=== PATIENT | male | born 1980 | race Caucasian/White ===

== ENCOUNTER 2019-08-06 14:42 | Inpatient (IN) | payer BC, OTHER ==
[2019-08-06 17:46] LABS: ABS Eosinophils 0.1 10^3/ul (0-0.6); ABS Lymphocytes 1.1 10^3/ul (1.0-4.8); ABS Monocytes 1.3 10^3/ul (0-0.8); Eosinophil % 0.7 %; Hematocrit 47 % (42-52); Hemoglobin 16.3 g/dL (14.0-18.0); Lymphocyte % 8.1 %; Mean Corpuscular HGB Conc 35 g/dL (31-36); Mean Corpuscular Hemoglobin 34 pg (27-31); Mean Corpuscular Volume 96 fL (80-94); Mean Platelet Volume 8.4 fL (7.4-10.4); Nucleated Red Blood Cells % 0.1; Platelet Count 181 10^3/uL (150-450); Red Blood Count 4.85 10^6 /uL (4.18-5.48); Red Cell Distribution Width 13 % (10-15); White Blood Count 13.5 10^3/uL (3.5-10.8)
[2019-08-06 18:00] LABS: Albumin 4.5 g/dL (3.2-5.2); Albumin/Globulin Ratio 1.3 (1-3); BUN/Creatinine Ratio 11.3 (8-20); C Reactive Protein 102.47 mg/L (<8.01); Calcium 9.5 mg/dL (8.6-10.3); EGFR African American 150.2 (>60); EGFR Non-African American 124.2 (>60); Globulin 3.4 g/dL (2-4); Total Bilirubin 0.7 mg/dL (0.2-1.0); Total Protein 7.9 g/dL (6.4-8.9)
[2019-08-06] MEDS ORDERED: NS 0.9% 1000 ML** 3,000 ML IV ONE (20:40)
[2019-08-06] MEDS ORDERED: Ondansetron INJ* 2 MG/ML VIAL IV ONE (20:41)
[2019-08-06] MEDS ORDERED: Morphine 10 MG/ML VIAL (1 ml) IV ONE (20:41)
--- NOTE | 2019-08-06 20:50 | ED ---
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 He notes that the abd pain is diffuse and radiates towards his back. He has not been able to sleep due to the abd pain and cannot eat due to nausea. He has also experienced decreased bowel movements and urination. The pt notes that he has experience similar symptoms before but only for 2 hours at a time. He rates his current pain severity due to the abd pain a 9/10. He also reports diaphoresis but denies any vomiting, fever, or chills. He is a light smoker and drinker. - History of Current Complaint Chief Complaint: EDAbdPain Stated Complaint: ABD PAIN Time Seen by Provider: 08/06/19 20:35 Hx Obtained From: Patient Onset/Duration: Lasting Days, Still Present Timing: Constant Severity Initially: Severe Severity Currently: Severe Pain Intensity: 9 Pain Scale Used: 0-10 Numeric Location: Diffuse Radiates: Yes Radiates to: Back Aggravating Factor(s): Nothing Alleviating Factor(s): Nothing Associated Signs And Symptoms: Positive: Negative - chills, Diaphoresis, Back Pain, Constipation, Urinary Symptoms - decreased urination, Decreased Appetite, Nausea, Other - pos - abd pain. Negative: Fever, Vomiting - Allergies/Home Medications Allergies/Adverse Reactions: Allergies Allergy/AdvReac Type Severity Reaction Status Date / Time No Known Allergies Allergy Verified 08/06/19 14:49 Home Medications: Home Medications NK [No Home Medications Reported] 08/06/19 [History Confirmed 08/06/19] PMH/Surg Hx/FS Hx/Imm Hx Endocrine/Hematology History: Denies: Hx Diabetes, Hx Thyroid Disease Cardiovascular History: Denies: Hx Hypertension Respiratory History: Denies: Hx Asthma, Hx Chronic Obstructive Pulmonary Disease (COPD) GI History: Denies: Hx Ulcer - Cancer History Cancer Type, Location and Year: testicular cancer dx 3 yrs ago treated at [facility] per pt Hx Chemotherapy: Yes - 2 yrs ago - Surgical History Surgery Procedure, Year, and Place: right orchiectomy Infectious Disease History: No Infectious Disease History: Denies: Hx Hepatitis, Hx Human Immunodeficiency Virus (HIV), History Other Infectious Disease, Traveled Outside the [place] in Last 30 Days - Family History Family History: Denies any known significant fam hx - Social History Alcohol Use: Occasionally Substance Use Type: Reports: None Smoking Status (MU): Heavy Every Day Tobacco Smoker Type: Cigarettes Amount Used/How Often: almost 1 ppd Length of Time of Smoking/Using Tobacco: 10 years Have You Smoked in the Last Year: Yes Review of Systems Positive: Skin Diaphoresis. Negative: Fever, Chills Positive: Abdominal Pain, Nausea, Other - pos - constipation. Negative: Vomiting Genitourinary: Other - pos - decreased urination Musculoskeletal: Other - pos - back pain All Other Systems Reviewed And Are Negative: Yes Physical Exam Triage Information Reviewed: Yes Vital Signs On Initial Exam: Initial Vitals Temp Pulse Resp BP Pulse Ox 98.8 F 87 16 161/101 97 08/06/19 14:47 08/06/19 14:47 08/06/19 14:47 08/06/19 14:47 08/06/19 14:47 Vital Signs Reviewed: Yes Procedures - Sedation Patient Received Moderate/Deep Sedation with Procedure: No Diagnostics - Vital Signs Vital Signs Temp Pulse Resp BP Pulse Ox 08/06/19 19:05 99.4 F 91 20 182/105 99 08/06/19 17:05 98.8 F 86 16 170/102 100 08/06/19 14:47 98.8 F 87 16 161/101 97 - Laboratory Lab Results: Lab Results 08/06/19 08/06/19 08/06/19 Range/Units 17:29 17:29 17:29 WBC 13.5 H (3.5-10.8) 10^3/uL RBC 4.85 (4.18-5.48) 10^6 /uL Hgb 16.3 (14.0-18.0) g/dL Hct 47 (42-52) % MCV 96 H (80-94) fL MCH 34 H (27-31) pg MCHC 35 (31-36) g/dL RDW 13 (10-15) % Plt Count 181 (150-450) 10^3/uL MPV 8.4 (7.4-10.4) fL Neut % (Auto) 81.5 % Lymph % (Auto) 8.1 % [place] % (Auto) 9.5 % Eos % (Auto) 0.7 % Baso % (Auto) 0.2 % Absolute Neuts (auto) 11.0 H (1.5-7.7) 10^3/ul Absolute Lymphs (auto) 1.1 (1.0-4.8) 10^3/ul Absolute Monos (auto) 1.3 H (0-0.8) 10^3/ul Absolute Eos (auto) 0.1 (0-0.6) 10^3/ul Absolute Basos (auto) 0.0 (0-0.2) 10^3/ul Absolute Nucleated RBC 0.0 10^3/ul Nucleated RBC % 0.1 Sodium 133 L (135-145) mmol/L Potassium 4.0 (3.5-5.0) mmol/L Chloride 97 L (101-111) mmol/L Carbon Dioxide 27 (22-32) mmol/L Anion Gap 9 (2-11) mmol/L BUN 8 (6-24) mg/dL Creatinine 0.71 (0.67-1.17) mg/dL Est GFR ( Amer) 150.2 (>60) Est GFR (Non-Af Amer) 124.2 (>60) BUN/Creatinine Ratio 11.3 (8-20) Glucose 95 (70-100) mg/dL Lactic Acid 0.9 (0.5-2.0) mmol/L Calcium 9.5 (8.6-10.3) mg/dL Total Bilirubin 0.70 (0.2-1.0) mg/dL AST 18 (13-39) U/L ALT 25 (7-52) U/L Alkaline Phosphatase 86 (34-104) U/L C-Reactive Protein 102.47 H (<8.01) mg/L Total Protein 7.9 (6.4-8.9) g/dL Albumin 4.5 (3.2-5.2) g/dL Globulin 3.4 (2-4) g/dL Albumin/Globulin Ratio 1.3 (1-3) Amylase 792 H (29-103) U/L Lipase 2940 H (11.0-82.0) U/L Result Diagrams: 08/06/19 17:29 08/06/19 17:29 Lab Statement: Any lab studies that have been ordered have been reviewed, and results considered in the medical decision making process. - Ultrasound Gallbladder US Ultrasound Interpretation Completed By: Radiologist Summary of Ultrasound Findings: IMPRESSION: Unremarkable sonography of the gallbladder and CBD. No gallstones nor sludge are seen. ED Physician has reviewed this report. 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 He notes that the abd pain is diffuse and radiates towards his back. He has not been able to sleep due to the abd pain and cannot eat due to nausea. He has also experienced decreased bowel movements and urination. Lab results normal except for WBC 13.5, MCV 96, MCH 34, Absolute Neuts 11, Absolute Monos 1.3, Sodium 133, Chloride 97, CRP 102.47, Amylase 792, Lipase 2940. Gallbladder US reveals: unremarkable sonography of the gallbladder and CBD. No gallstones nor sludge are seen. Final dx is pancreatitis. Dr. Puente will admit the pt to [facility]. Pt is agreeable with this plan. - Diagnoses Provider Diagnoses: Pancreatitis - Provider Notifications Discussed Care Of Patient With: Ethel Puente - Dr. Puente recommends pt admission. Dr. Acuna was consulted regarding the pt's case. Time Discussed With Above Provider: 20:41 Instructed by Provider To: Admit As Inpatient Discharge ED - Sign-Out/Discharge Documenting (check all that apply): Patient Departure - admit - Discharge Plan Condition: Stable Disposition: ADMITTED TO [facility] - Billing Disposition and Condition Condition: STABLE Disposition: Admitted to [facility] - Attestation Statements Document Initiated by Manish: Yes Documenting Scribe: Shon Ambrose Provider For Whom Manish is Documenting (Include Credential): John Stevens MD Scribe Attestation: Shon Klein, scribed for John Stevens MD on 08/07/19 at 0509. Scribe Documentation Reviewed: Yes Provider Attestation: The documentation as recorded by the Shon strickland accurately reflects the service I personally performed and the decisions made by , John Stevens MD Status of Scrcherri Document: Viewed
[2019-08-06] MEDS ORDERED: Iohexol 300* (CONTRAST) 10 ML SDV IV ONE (21:56)
[2019-08-06 23:12] LABS: Urine Appearance Clear; Urine Bilirubin Negative (Negative); Urine Blood Negative (Negative); Urine Color Straw; Urine Glucose Negative (Negative); Urine Ketones Trace (Negative); Urine Nitrite Negative (Negative); Urine Protein Negative (Negative); Urine Specific Gravity 1.002 (1.010-1.030); Urine Urobilinogen Negative (Negative)
[2019-08-06] MEDS ORDERED: Ondansetron INJ* 2 MG/ML VIAL IV PRN (23:58)
[2019-08-07] MEDS: Enoxaparin(*) 40 MG/0.4 ML SYR SUBCUT SCH ×2 (02:40→23:41)
[2019-08-07] MEDS: NS 0.9% 1000 ML** 1,000 ML IV SCH (02:41)
[2019-08-07] MEDS: Morphine INJ* 2 MG/ML 1 ML SYRINGE (TWO MG - NEW SYRINGE VERSION) IV PRN ×2 (02:45→22:10)
[2019-08-07 05:54] LABS: ABS Eosinophils 0.1 10^3/ul (0-0.6); ABS Lymphocytes 1.2 10^3/ul (1.0-4.8); ABS Monocytes 1.1 10^3/ul (0-0.8); ABS Neutrophils 7.5 10^3/ul (1.5-7.7); Eosinophil % 1.4 %; Hematocrit 43 % (42-52); Hemoglobin 14.8 g/dL (14.0-18.0); Lymphocyte % 12.4 %; Mean Corpuscular HGB Conc 35 g/dL (31-36); Mean Corpuscular Hemoglobin 33 pg (27-31); Mean Corpuscular Volume 96 fL (80-94); Mean Platelet Volume 8.4 fL (7.4-10.4); Nucleated Red Blood Cells % 0.1; Platelet Count 155 10^3/uL (150-450); Red Blood Count 4.46 10^6 /uL (4.18-5.48); Red Cell Distribution Width 13 % (10-15); White Blood Count 10.1 10^3/uL (3.5-10.8)
[2019-08-07 05:58] LABS: INR 1.14 (0.82-1.09)
[2019-08-07 06:11] LABS: BUN/Creatinine Ratio 8.6 (8-20); Calcium 8.4 mg/dL (8.6-10.3); EGFR African American 152.7 (>60); EGFR Non-African American 126.2 (>60); HDL Cholesterol 49.7 mg/dL; Potassium 3.4 mmol/L (3.5-5.0)
[2019-08-07 06:24] LABS: TSH (Thyroid Stimulating Horm) 0.58 mcIU/mL (0.34-5.60)
--- NOTE | 2019-08-07 06:50 | ADMNOTE ---
Subjective Interval History: this is my H/P 38 yo male with no medical hx presenting with epigastric pain radiating to his back. Pain started 2 days ago and since has not been able to eat. He has been nauseous. It had gotten so unbearable that he came to the ED today. Lipase level markedly elevated. His CT showed pancreatitis, but official read not yet available. US did not show evidence of gallstones or sludge. Pt denies drinking alcohol. He does not take any medications OTC. He does not have a PCP. He never had anything like it before and does not have any hx of it in his family. His electrolytes levels are benign. Family History: Unchanged from Admission Social History: Unchanged from Admission Past Medical History: Unchanged from Admission Review of Systems - Measurements Intake and Output: Intake and Output Last 24 Hours 08/04/19 08/05/19 08/06/19 08/07/19 06:59 06:59 06:59 06:59 Intake Total 3000 Balance 3000 Weight 189 lb 9.6 oz Intake: IV Fluids 3000 - Review of Systems Constitutional Symptoms: Negative: Weight Gain, Weight Loss, Weakness, Fatigue, Fever, Night Sweats, Unexplained Falls, Other Dermatology: Negative: Normal, Rash, Skin Lesions, Cancer, Skin Lumps, Other HEENT: Negative: Normal, Change in Hearing, Vertigo, Dental Problems, Tinnitus, Sinus Problem, Other Eyes: Negative: Normal, Change in Vision, Double Vision, Eye Pain, Glaucoma, Cataract, Contacts or Glasses, Other Thyroid: Negative: Normal, Goiter, Thyroid Nodule, Cold Intolerance, Heat Intolerance , Sweatiness, Tremor, Frequent Defecation, Constipation, Palpitations, Primary Hypothyroidism, Primary Hyperthyroidism, Weight Loss, Weight Gain, Change in Skin/Hair, Change in Menstruation, Radiation Exposure, Other Pulmonary: Negative: Normal, Cough, Sputum, Hemoptysis, Wheezing, Respiratory Distress, Shortness of Breath, COPD, Asthma, Exercise Intolerance, Home Oxygen, Other Cardiology: Negative: Normal, Chest Pain, Shortness of Breath, Palpitations, Swelling of Ankles, Peripheral Vascular Dis, Edema, Faintness, Syncope, Claudication, Proximal NocturnalDyspnea, Orthopnoea, Other Gastroenterology: Positive: Abdominal Pain, Nausea Negative: Normal, Vomiting, Anorexia, Indigestion, Difficulty Swallowing, Heartburn, Constipation, Diarrhea, Blood in Stools, Change in Bowel Habits, Haematemesis, Melena, Other Musculoskeletal: Negative: Joint Pain, Joint Stiffness, Arthritis, Osteoporosis, Low Back Pain , Sciatica, Joint Deformities, Kyphoscoliosis, Other Endocrinology: Negative: Normal, Thyroid Problems, Adrenal Problems, Gonadal Problems, Family Hx Endocrine Disorders, Obesity, Diabetes Mellitus, Hyperglycemia, Hx Hypoglycemia, Diabetic Foot Ulcers, Calluses, Hirsutism, Menstrual Abnormalities , Polydipsia, Polyuria, Gonadal Problems, Gynecomastia, Pituitary disease, Other Neurology: Negative: Normal, Headache, Migraines, Change in Vision, Diplopia, Dizziness , Change in Balancing, Change in Coordination, Change in Memory, Change in Speech, Change in Sphincter Function, Change in Walking, Numbness\Paresthesiae, Unexplained Weakness, Hx of Stroke\TIA, Hx of Seizures, Other Psychiatry: Negative: Normal, Depression, Anxiety, Depressed Mood, Anhedonia, Sexual Dysfunction, Weight Change, Guilt Feelings, Tearfulness, Unusual Fatigue, Unusual Anxiety, Suicidal Ideation, Hypomania, Eating Disorders, Other Allergic/Immunologic: Negative: Hx Anaphylaxis, Hx Angioedema, Hx Environmental, Hx Seasonal, Asthma, Hx HIV, Immunocompromise, Swollen Glands LymphNodes, Other Objective Active Medications: Enoxaparin Sodium (Lovenox(*)) 40 mg SUBCUT Q24H [facility] Last Admin: 08/07/19 02:40 Dose: 40 mg Sodium Chloride (Ns 0.9% 1000 Ml) 1,000 mls @ 125 mls/hr IV PER RATE [facility] Last Admin: 08/07/19 02:41 Dose: 125 mls/hr Influenza Virus Vaccine (Fluarix Quad [id number] Syr) 0.5 ml IM .ONCE ONE Stop: 08/07/19 09:01 Morphine Sulfate (Morphine Inj (Syringe))*) 2 mg IV Q4H PRN PRN Reason: PAIN - MILD Last Admin: 08/07/19 02:45 Dose: 2 mg Ondansetron HCl (Zofran Inj*) 4 mg IV Q4H PRN PRN Reason: NAUSEA/VOMITING Vital Signs - 8 hr 08/06/19 08/07/19 08/07/19 22:55 01:50 02:17 Temperature 100.4 F 98.9 F 98.3 F Pulse Rate 74 80 78 Respiratory 18 16 16 Rate Blood Pressure 157/99 160/90 160/90 (mmHg) O2 Sat by Pulse 96 98 98 Oximetry 08/07/19 08/07/19 08/07/19 02:20 02:45 04:37 Temperature 98.5 F 98.7 F Pulse Rate 83 80 Respiratory 18 18 18 Rate Blood Pressure 161/90 139/93 (mmHg) O2 Sat by Pulse 99 97 Oximetry 08/07/19 05:11 Temperature Pulse Rate Respiratory 18 Rate Blood Pressure (mmHg) O2 Sat by Pulse Oximetry Oxygen Devices in Use Now: None Appearance: NID Ears/Nose/Mouth/Throat: NL Teeth, Lips, Gums, Mucous Membranes Moist Neck: NL Appearance and Movements; NL JVP, Trachea Midline Respiratory: Symmetrical Chest Expansion and Respiratory Effort, Clear to Auscultation, Clear to Percussion Cardiovascular: NL Sounds; No Murmurs; No JVD Abdominal: NL Sounds; No Tenderness; No Distention Lymphatic: No Cervical Adenopathy, No Inguinal Adenopathy Extremities: No Edema Skin: No Rash or Ulcers Neurological: Alert and Oriented x 3, NL Muscle Strength and Tone Result Diagrams: 08/07/19 05:23 08/07/19 05:23 Additional Lab and Data: Lab Results 08/06/19 08/06/19 08/06/19 Range/Units 17:29 17:29 17:29 WBC 13.5 H (3.5-10.8) 10^3/uL RBC 4.85 (4.18-5.48) 10^6 /uL Hgb 16.3 (14.0-18.0) g/dL Hct 47 (42-52) % MCV 96 H (80-94) fL MCH 34 H (27-31) pg MCHC 35 (31-36) g/dL RDW 13 (10-15) % Plt Count 181 (150-450) 10^3/uL MPV 8.4 (7.4-10.4) fL Neut % (Auto) 81.5 % Lymph % (Auto) 8.1 % [place] % (Auto) 9.5 % Eos % (Auto) 0.7 % Baso % (Auto) 0.2 % Absolute Neuts (auto) 11.0 H (1.5-7.7) 10^3/ul Absolute Lymphs (auto) 1.1 (1.0-4.8) 10^3/ul Absolute Monos (auto) 1.3 H (0-0.8) 10^3/ul Absolute Eos (auto) 0.1 (0-0.6) 10^3/ul Absolute Basos (auto) 0.0 (0-0.2) 10^3/ul Absolute Nucleated RBC 0.0 10^3/ul Nucleated RBC % 0.1 Sodium 133 L (135-145) mmol/L Potassium 4.0 (3.5-5.0) mmol/L Chloride 97 L (101-111) mmol/L Carbon Dioxide 27 (22-32) mmol/L Anion Gap 9 (2-11) mmol/L BUN 8 (6-24) mg/dL Creatinine 0.71 (0.67-1.17) mg/dL Est GFR ( Amer) 150.2 (>60) Est GFR (Non-Af Amer) 124.2 (>60) BUN/Creatinine Ratio 11.3 (8-20) Glucose 95 (70-100) mg/dL Lactic Acid 0.9 (0.5-2.0) mmol/L Calcium 9.5 (8.6-10.3) mg/dL Total Bilirubin 0.70 (0.2-1.0) mg/dL AST 18 (13-39) U/L ALT 25 (7-52) U/L Alkaline Phosphatase 86 (34-104) U/L C-Reactive Protein 102.47 H (<8.01) mg/L Total Protein 7.9 (6.4-8.9) g/dL Albumin 4.5 (3.2-5.2) g/dL Globulin 3.4 (2-4) g/dL Albumin/Globulin Ratio 1.3 (1-3) Amylase 792 H (29-103) U/L Lipase 2940 H (11.0-82.0) U/L Assess/Plan/Problems-Billing Assessment: - Patient Problems (1) Pancreatitis Current Visit: Yes Status: Acute Code(s): K85.90 - ACUTE PANCREATITIS WITHOUT NECROSIS OR INFECTION, UNSP SNOMED Code(s): 42818037 Comment: cause is unknown He gives no hx of alcohol, medications. US is normal. Calcium level if anything is borderline low. NPO, IVF, morphine PRN for pain (2) DVT prophylaxis Current Visit: Yes Status: Acute Code(s): Z29.9 - ENCOUNTER FOR PROPHYLACTIC MEASURES, UNSPECIFIED SNOMED Code(s): 714474101 Comment: lovenox (3) Full code status Current Visit: Yes Status: Acute Code(s): Z78.9 - OTHER SPECIFIED HEALTH STATUS SNOMED Code(s): 261387696
[2019-08-07] MEDS ORDERED: Influenza VAC *QUAD* 2019-20* 0.5 ML SYRINGE IM ONE (09:00)
--- NOTE | 2019-08-07 10:34 | PN ---
Subjective Date of Service: 08/07/19 Interval History: MR. Villanueva reports that he is feeling better today. He had no pain this AM and was able to tolerate a small amount of clear liquids. He has some mild right sided pain this afternoon. He denies other complaint including chest pain , SOB, or nausea. Family History: Unchanged from Admission Social History: Unchanged from Admission Past Medical History: Unchanged from Admission Objective Active Medications: Enoxaparin Sodium (Lovenox(*)) 40 mg SUBCUT Q24H ESE Sodium Chloride (Ns 0.9% 1000 Ml) 1,000 mls @ 125 mls/hr IV PER RATE ESE Morphine Sulfate (Morphine Inj (Syringe))*) 2 mg IV Q4H PRN Ondansetron HCl (Zofran Inj*) 4 mg IV Q4H PRN Vital Signs: Temp Pulse Resp BP Pulse Ox 98.7 F 80 18 139/93 97 08/07/19 04:37 08/07/19 04:37 08/07/19 05:11 08/07/19 04:37 08/07/19 04:37 Oxygen Devices in Use Now: None Appearance: Male lying in bed in NAD Eyes: No Scleral Icterus Ears/Nose/Mouth/Throat: Mucous Membranes Moist Neck: Trachea Midline Respiratory: Symmetrical Chest Expansion and Respiratory Effort, Clear to Auscultation Cardiovascular: NL Sounds; No Murmurs; No JVD, No Edema Abdominal: - - Soft, tender in right upper quadrant, no rebound or guarding, BS + Extremities: No Edema Skin: No Rash or Ulcers Neurological: Alert and Oriented x 3, NL Muscle Strength and Tone Result Diagrams: 08/07/19 05:23 08/07/19 05:23 Additional Lab and Data: . Assess/Plan/Problems-Billing Assessment: Mr. Villanueva is a 38 yo M with a PMH of who was admitted on 08/07/19 with pancreatitis. - Patient Problems (1) Pancreatitis Comment: - Slow improvement. cause is unknown - Unknown cause. Denies alcohol use, triglycerides normal, GBUS and CT normal, calcium level if anything is borderline low. - Sips of clears, IVF, morphine PRN for pain (2) DVT prophylaxis Comment: lovenox (3) Full code status Code(s): Z78.9 - OTHER SPECIFIED HEALTH STATUS SNOMED Code(s): 047286755 Status and Disposition: Inpatient. Anticipate discharge to home when medically stable.
[2019-08-08] MEDS ORDERED: Melatonin 3 MG TAB PO PRN (00:50)
[2019-08-08] MEDS ORDERED: Acetaminophen TAB* 325 MG PO PRN (01:02)
[2019-08-08] MEDS: NS 0.9% 1000 ML** 1,000 ML IV SCH (01:21)
[2019-08-08 06:10] LABS: Amylase 177 U/L (29-103)
[2019-08-08] MEDS ORDERED: NS 0.9% 1000 ML** 1,000 ML IV SCH (09:04)
--- NOTE | 2019-08-08 09:06 | PN ---
Subjective Date of Service: 08/08/19 Interval History: Mr. Villanueva is completely pain free. He is sitting up and ambulating around the unit. He is tolerating a soft diet with no pain or nausea. Family History: Unchanged from Admission Social History: Unchanged from Admission Past Medical History: Unchanged from Admission Objective Active Medications: Acetaminophen (Tylenol Tab*) 650 mg PO Q4H PRN Enoxaparin Sodium (Lovenox(*)) 40 mg SUBCUT Q24H ESE Sodium Chloride (Ns 0.9% 1000 Ml) 1,000 mls @ 50 mls/hr IV PER RATE ESE Melatonin (Melatonin) 3 mg PO BEDTIME PRN Morphine Sulfate (Morphine Inj (Syringe))*) 2 mg IV Q4H PRN Ondansetron HCl (Zofran Inj*) 4 mg IV Q4H PRN Vital Signs: Temp Pulse Resp BP Pulse Ox 98.7 F 95 18 156/108 94 08/08/19 07:35 08/08/19 07:35 08/08/19 07:35 08/08/19 07:35 08/08/19 07:35 Oxygen Devices in Use Now: None Appearance: Male sitting up in bed in NAD Eyes: No Scleral Icterus Ears/Nose/Mouth/Throat: Mucous Membranes Moist Respiratory: Symmetrical Chest Expansion and Respiratory Effort, Clear to Auscultation Cardiovascular: NL Sounds; No Murmurs; No JVD, No Edema Abdominal: NL Sounds; No Tenderness; No Distention Extremities: No Edema Skin: No Rash or Ulcers Neurological: Alert and Oriented x 3, NL Muscle Strength and Tone Nutrition: Taking PO's Result Diagrams: 08/07/19 05:23 08/07/19 05:23 Additional Lab and Data: . Assess/Plan/Problems-Billing Assessment: Mr. Villanueva is a 38 yo M with a PMH of who was admitted on 08/07/19 with pancreatitis. - Patient Problems (1) Pancreatitis Comment: - Resolving, tolerating soft diet. - Unknown cause. Denies alcohol use, triglycerides normal, GBUS and CT normal, calcium level if anything is borderline low. - Patient appropriate for discharge. Counseled that he should have small low fat meals only for the next couple of days. Avoid alcohol entirely. (2) DVT prophylaxis Comment: - lovenox (3) Full code status Code(s): Z78.9 - OTHER SPECIFIED HEALTH STATUS SNOMED Code(s): 569724756 Status and Disposition: Inpatient. Discharge to home
--- NOTE | 2019-08-08 14:41 | DS ---
HOSPITAL MEDICINE DISCHARGE SUMMARY: DATE OF ADMISSION: 08/07/19 DATE OF DISCHARGE: 08/08/19 PRIMARY CARE PHYSICIAN: None. ATTENDING PHYSICIAN: Nikia Gambino MD * (dictation provided by Nelsy Torres NP). PRIMARY DIAGNOSES: Pancreatitis of unknown cause. SECONDARY DIAGNOSIS: None. MEDICATIONS: None. HOSPITAL COURSE: Mr. Villanueva is a 38-year-old male with no known significant past medical history, who presented to the emergency room on with report of 2 days of abdominal pain. Please see dictated H and P from Ethel Puente for complete details. In brief, the patient states this pain was diffuse and radiated to his back. He was not able to to eat because of nausea. He had had decreased bowel movements and decreased urination. He states that his pain in severity was a 9/10. In the emergency room, Mr. Villanueva had labs, which showed that his lipase was elevated to 2940 with an amylase of 792. His liver enzymes were normal. His CRP was 102.47 and mild hyponatremia with a sodium of 133 and a very mid leukocytosis with white blood cell count of 13.5. He had a gallbladder ultrasound, which was read as follows: "Unremarkable sonography of the gallbladder and CBD. No gallstones or sludge are seen." Abdomen and pelvis CT showed acute pancreatitis, new since 07/11/14, status post right orchiectomy, which is similar to the prior study. Mr. Villanueva was questioned and he states that he only drinks alcohol occasionally with no recent binge drinking. He had a completely normal triglyceride and lipid profile with triglycerides of 68, cholesterol 124, LDL 61 , HDL 49.7. Again, his gallbladder workup was negative. His calcium was 9.5, therefore no clear etiology for his pancreatitis was determined. Mr. Villanueva was admitted to the hospital, he was treated with intravenous pain medications and intravenous fluids while maintaining n.p.o. status. By the next morning, he was stating he was pain-free. He was slowly advanced from a clear liquid diet up to soft diet. Today, he is tolerating the soft diet well without any pain. He is up and ambulating on the unit independently. He has had no nausea. Mr. Villanueva is medically stable for discharge to home. He has been encouraged to have a low fat, small meals several times during the day and that he should avoid alcohol I would say at least for next month or more. Mr. Villanueva is medically stable for discharge to home. DISPOSITION: Home. DIET: 1. Low fat, small meals for the next 2 to 3 days and then can resume low-fat diet. 2. Please avoid alcohol for at least the next month. FOLLOWUP: Mr. Villanueva does not have a primary care physician, but was given information about following up with obtaining a PCP in the community as needed. TIME SPENT: Approximately 60 minutes was spent on the discharge of this patient , more than half time spent with the patient at the bedside reviewing the events leading up to this hospitalization, performing the physical examination, and reviewing my plan of care. NELSY TORRES NP [id number]/CPS #: [id number] [place]
[2019-08-08 16:31] VITALS: BP 149/97
== END 2019-08-08 14:30 | disposition home or self-care (01) | DRG 282 ==
LOC: ED 14:42 → MED 08-07 02:16
PROVIDERS: ADMIT Student in an Organized Health Care Education/Training Program; ATTEND Internal Medicine
DX: K85.90 Acute pancreatitis without necrosis or infection, unspecified (principal); E87.1 Hypo-osmolality and hyponatremia; F17.210 Nicotine dependence, cigarettes, uncomplicated
CPT/HCPCS: 36415; 74177; 76705; 80048; 80053; 80061; 81003; 82150; 83605; 83690; 84443; 85025; 85610; 86140; 90686; 96374; 96375; 99283; J1650; J2270; J2405; Q9967